=== PATIENT | male | born 1985 | race Hispanic/Latino ===

== ENCOUNTER 2018-02-15 19:58 | Emergency (ER) | payer SELFPAY ==
[~2018-02-15] VITALS: Ht 172.7 cm; Wt 81.6 kg
[2018-02-15] MEDS ORDERED: TETANUS/DIPHTHERIA TOX ADULT 0.5 ML SYR IM ONE (20:45)
[2018-02-15] MEDS ORDERED: BACTRIM DS TAB1 EACH PO (20:47)
[2018-02-15 21:20] VITALS: BP 135/81
== END 2018-02-15 21:00 | disposition home or self-care (01) ==
LOC: FSED 19:58
DX: S01.21XA Laceration without foreign body of nose, initial encounter (principal); W31.89XA Contact with other specified machinery, initial encounter; Y93.89 Activity, other specified; Y92.89 Other specified places as the place of occurrence of the external cause; Z23 Encounter for immunization
CPT/HCPCS: 90714; 99283